=== PATIENT | female | born 1950 | race Caucasian/White ===

== ENCOUNTER → 2020-07-22 15:31 | Outpatient (CLI) | payer MEDICARE, SELFPAY ==
[2020-07-22 16:11] LABS: Basophils # 0.1 K/mm3 (0-0.2); Basophils % 1.4 % (0.1-2.0); Eosinophils # 0.4 K/mm3 (0.0-0.4); Eosinophils % 7.3 % (0.1-12.0); Hemoglobin 15.1 g/dL (12.2-16.2); Lymphocytes # 0.8 K/mm3 (0.7-4.5); Lymphocytes % 17.4 % (10-50); Mean Corpuscular HGB Conc 35.1 g/dL (31.8-35.4); Mean Corpuscular Hemoglobin 30.8 pg (27.0-31.2); Mean Corpuscular Volume 87.7 fl (81-99); Mean Platelet Volume 8.6 fl (7.4-10.4); Monocytes # 0.2 K/mm3 (0.1-1.0); Monocytes % 3.4 % (1.7-9.3); Neutrophils # 3.4 K/mm3 (1.8-7.8); Neutrophils % 70.5 % (37.0-80.0); Platelet Count 289 K/mm3 (142-424); Red Blood Count 4.91 M/mm3 (4.20-5.40); Red Cell Distribution Width 13.5 % (11.5-17.5); White Blood Count 4.8 K/mm3 (4.8-10.8)
[2020-07-22 16:37] LABS: Alanine Aminotransferase 10 U/L (12-78); Albumin Level 4.1 g/dl (3.5-5.0); Albumin/Globulin Ratio 1.5 (1.1-1.8); Alkaline Phosphatase 89 U/L (38-126); Anion Gap 13.4 mEq/L (5-15); Aspartate Amino Transferase 21 U/L (14-36); Bilirubin,Total 0.7 mg/dl (0.2-1.3); Blood Urea Nitrogen 16 mg/dl (7-17); Calcium 9.6 mg/dl (8.4-10.2); Carbon Dioxide 30 mmol/L (22.0-30.0); Chloride 103 mmol/L (98-107); Chol/HDL Ratio 4.3 (1-3.5); Cholesterol 235 mg/dl (140-200); Estimated Glomerular Filt Rate 83 ml/min (>60); GFR (African American) 100 ML/MIN (>60); Globulin 2.8 g/dL (1.3-3.2); Glucose 105 mg/dl (74-100); HDL Cholesterol 55 mg/dl (40-60); Potassium 4.4 mmoL/L (3.5-5.1); Sodium 142 mmol/L (136-145); Total Protein,Serum 6.9 g/dl (6.3-8.2); Triglycerides 154 mg/dl (30-150); VLDL Cholesterol 31 mg/dL (0-40)
[2020-07-22 16:49] LABS: Direct LDL Cholesterol 158.19 mg/dL (100-129)
[2020-07-22 16:55] LABS: T4 (Thyroxine) 9.1 ug/dl (5.53-11.0)
[2020-07-22 17:09] LABS: Thyroid Stimulating Hormone 1.21 uIU/mL (0.465-4.68)
== END ==
PROVIDERS: Visit Provider Family Medicine
DX: E78.5 Hyperlipidemia, unspecified (principal); K14.6 Glossodynia; Z96.652 Presence of left artificial knee joint; Z79.899 Other long term (current) drug therapy
CPT/HCPCS: 80053; 80061; 84436; 84443; 85025

== ENCOUNTER → 2021-07-20 12:55 | Outpatient (CLI) | payer MEDICARE, SELFPAY ==
[2021-07-20 15:16] LABS: Basophils # 0.1 K/mm3 (0-0.2); Eosinophils # 0.1 K/mm3 (0.0-0.4); Eosinophils % 2.2 % (0.1-12.0); Hematocrit 40.4 % (37.0-47.0); Hemoglobin 13.8 g/dL (12.2-16.2); Lymphocytes # 0.9 K/mm3 (0.7-4.5); Lymphocytes % 17.6 % (10-50); Mean Corpuscular HGB Conc 34.1 g/dL (31.8-35.4); Mean Corpuscular Hemoglobin 29.8 pg (27.0-31.2); Mean Corpuscular Volume 87.3 fl (81-99); Mean Platelet Volume 9.1 fl (7.4-10.4); Monocytes # 0.2 K/mm3 (0.1-1.0); Neutrophils # 3.8 K/mm3 (1.8-7.8); Neutrophils % 75.2 % (37.0-80.0); Platelet Count 330 K/mm3 (142-424); Red Blood Count 4.63 M/mm3 (4.20-5.40); Red Cell Distribution Width 13.3 % (11.5-17.5); White Blood Count 5.1 K/mm3 (4.8-10.8)
[2021-07-20 15:23] LABS: Amphetamine/Metha Screen,Urine Negative ng/ml (<1000)
[2021-07-20 15:24] LABS: Barbiturates Screen,Urine Negative ng/ml (<200)
[2021-07-20 15:25] LABS: Benzodiazepines Screen,Urine Negative ng/ml (<200); Cannabinoid Screen,Urine Negative ng/ml (<50)
[2021-07-20 15:26] LABS: Cocaine Screen,Urine Negative ng/ml (<300)
[2021-07-20 15:28] LABS: Methadone Screen,Urine Negative ng/ml (<300); Opiate Screen,Urine Negative ng/ml (<300)
[2021-07-20 15:30] LABS: Phencyclidine Screen,Urine Negative ng/ml (<25)
[2021-07-20 16:50] LABS: Alanine Aminotransferase 12 U/L (12-78); Albumin Level 4.1 g/dl (3.5-5.0); Albumin/Globulin Ratio 1.6 (1.1-1.8); Alkaline Phosphatase 66 U/L (38-126); Anion Gap 9.3 mEq/L (5-15); Aspartate Amino Transferase 22 U/L (14-36); Bilirubin,Total 0.5 mg/dl (0.2-1.3); Blood Urea Nitrogen 14 mg/dl (7-17); Calcium 9.3 mg/dl (8.4-10.2); Carbon Dioxide 28 mmol/L (22.0-30.0); Chloride 106 mmol/L (98-107); Chol/HDL Ratio 3.8 (1-3.5); Cholesterol 200 mg/dl (140-200); Estimated Glomerular Filt Rate 122 ml/min (>60); GFR (African American) 147 ML/MIN (>60); Globulin 2.6 g/dL (1.3-3.2); Glucose 106 mg/dl (74-100); HDL Cholesterol 52 mg/dl (40-60); Potassium 4.3 mmoL/L (3.5-5.1); Sodium 139 mmol/L (136-145); Total Protein,Serum 6.7 g/dl (6.3-8.2); Triglycerides 107 mg/dl (30-150); VLDL Cholesterol 21 mg/dL (0-40)
[2021-07-20 17:00] LABS: Direct LDL Cholesterol 165.26 mg/dL (100-129)
[2021-07-20 17:22] LABS: Thyroid Stimulating Hormone 1.36 uIU/mL (0.465-4.68)
== END ==
PROVIDERS: Visit Provider Family Medicine
DX: M15.4 Erosive (osteo)arthritis (principal); Z00.00 Encounter for general adult medical examination without abnormal findings; Z85.3 Personal history of malignant neoplasm of breast; F41.9 Anxiety disorder, unspecified; Z79.899 Other long term (current) drug therapy
CPT/HCPCS: 80053; 80061; 80305; 84443; 85025